=== PATIENT | female | born 1990 | race Native Hawaiian/Other Pacific Islander ===

== ENCOUNTER 2019-04-14 18:46 | Outpatient (CLI) | payer OTHER ==
[~2019-04-14 18:46] MED LIST: FLINTSTONES GUM1 CHW PO
== END 2019-04-14 21:19 | disposition home or self-care (01) ==
LOC: RAD 18:46
DX: S99.811A Other specified injuries of right ankle, initial encounter (principal); X58.XXXA Exposure to other specified factors, initial encounter; Y93.89 Activity, other specified; Y92.89 Other specified places as the place of occurrence of the external cause

== ENCOUNTER 2019-10-19 16:23 | Outpatient (CLI) | payer OTHER | END 2019-10-19 20:35 | disposition home or self-care (01) | LOC: RAD 16:23 | DX: S69.82XA Other specified injuries of left wrist, hand and finger(s), initial encounter (principal) ==

== ENCOUNTER 2020-04-22 11:30 | Outpatient (CLI) | payer OTHER | END 2020-04-22 20:38 | disposition home or self-care (01) | LOC: RAD 11:30 | PROVIDERS: ATTEND Nurse Practitioner Family | DX: M62.838 Other muscle spasm (principal) ==

== ENCOUNTER 2020-08-11 13:27 | Outpatient (CLI) | payer OTHER | END 2020-08-11 14:30 | disposition home or self-care (01) | LOC: CT 13:27 | PROVIDERS: ATTEND Nurse Practitioner Family | DX: K43.9 Ventral hernia without obstruction or gangrene (principal) | CPT/HCPCS: Q9963 ==

== ENCOUNTER 2021-01-04 16:53 | Outpatient (CLI) | payer OTHER | END 2021-01-04 20:10 | disposition home or self-care (01) | LOC: CT 16:53 | PROVIDERS: ATTEND Nurse Practitioner Family | DX: R10.31 Right lower quadrant pain (principal) | CPT/HCPCS: Q9963 ==

== ENCOUNTER 2021-01-25 09:25 | Day surgery (SDC) | payer OTHER ==
[2021-01-23 14:10] LABS: PLATELET COUNT 232 K/uL (152-353)
[2021-01-23 14:35] LABS: POTASSIUM 3.6 mmol/L (3.6-5.2)
[~2021-01-25] VITALS: Ht 30.5 cm; Wt 0.5 kg
== END 2021-01-25 12:17 | disposition home or self-care (01) ==
LOC: OR 09:25
PROVIDERS: ATTEND Family Medicine
PROC: 0UPD7HZ Removal of Contraceptive Device from Uterus and Cervix, Via Natural or Artificial Opening (ICD-10-PCS; principal; 2021-01-25)
PROC: 0UDB7ZZ Extraction of Endometrium, Via Natural or Artificial Opening (ICD-10-PCS; 2021-01-25)
DX: Z30.432 Encounter for removal of intrauterine contraceptive device (principal); Z20.822 Contact with and (suspected) exposure to COVID-19
CPT/HCPCS: 80053; 81025; 85027; 87635; J1100; J2250; J2405; J3010; J3490; U0003

== ENCOUNTER 2022-04-08 07:59 | Outpatient (CLI) | payer OTHER ==
[2022-04-08 09:34] LABS: PLATELET COUNT 311 K/uL (152-353)
== END 2022-04-08 19:03 | disposition home or self-care (01) ==
LOC: LABW 07:59
PROVIDERS: ATTEND Obstetrics & Gynecology
DX: R73.09 Other abnormal glucose (principal)
CPT/HCPCS: 36415; 82951; 85027